=== PATIENT | male | born 1970 | race Caucasian/White ===

== ENCOUNTER 2016-11-09 15:21 | Emergency (ER) | payer BC ==
[~2016-11-09] VITALS: Ht 170.2 cm; Wt 95.3 kg
[2016-11-09] MEDS ORDERED: IBUPROFEN 600 MG TABLET PO ONE (17:00)
--- NOTE | 2016-11-09 17:06 | NUR ---
Patient says that he is homeless. Patient given written and verbal discharge instructions. Patient verbalizes understanding of instructions. Patient is ambulatory with steady gait. Refuses offer of penitentiary placement. Patient given list of available shelters in surrounding area.
[2016-11-09] MEDS ORDERED: IBUPROFEN 600 MG TABLET ONE (17:10)
[2016-11-09 17:17] VITALS: BP 129/69
[2016-11-09] MEDS ORDERED: HYDROMORPHONE 1 MG/1 ML DISP.SYRIN IV ONE (17:45)
== END 2016-11-09 17:21 | disposition home or self-care (01) ==
LOC: ER 15:23
DX: S13.4XXA Sprain of ligaments of cervical spine, initial encounter (principal); S39.012A Strain of muscle, fascia and tendon of lower back, initial encounter; I10 Essential (primary) hypertension; R60.0 Localized edema; V43.52XA Car driver injured in collision with other type car in traffic accident, initial encounter; Y93.89 Activity, other specified; Y92.410 Unspecified street and highway as the place of occurrence of the external cause; Y99.9 Unspecified external cause status
CPT/HCPCS: 72125; 72131; 73030; 99284; A4663